=== PATIENT | male | born 1940 | race Caucasian/White ===

== ENCOUNTER → 2017-06-15 | Outpatient (CLI) | payer OTHER ==
[~2017-06-15] MED LIST: ASPIRIN EC81 M1 PO; CARVEDILOL25 MG PO; LISINOPRIL20 MG PO; POTASSIUM20 PO; SIMVASTATIN40 MG PO
== END ==
LOC: NUC 09:10
DX: I71.4 Abdominal aortic aneurysm, without rupture (principal); I73.9 Peripheral vascular disease, unspecified; I10 Essential (primary) hypertension; E78.5 Hyperlipidemia, unspecified; Z72.0 Tobacco use

== ENCOUNTER → 2018-05-23 | Outpatient (CLI) | payer OTHER ==
--- NOTE | ~2018-05-23 | 2DMMODE ---
[facility] [place] [address] 2 D/M-MODE ECHOCARDIOGRAM Name: BRIGIDOCJ R Room #: [facility]#: [id number] Admission: 05/23/18 Attend Phys: Jose Holly Discharge: Date of : 40 Date of Service: 05/23/18 1433 Report #: [id number] THIS REPORT FOR: //name// APPROVED REPORT Study performed: 05/23/2018 13:14:59 EXAM: Comprehensive 2D, Doppler, and color-flow Echocardiogram Patient Location: Out-Patient Status: routine BSA: 1.89 HR: 55 bpm BP: 154/70 mmHg Rhythm: NSR/PVCs Other Information Study Quality: Adequate Technically limited study due to body habitus. Indications Ischemic cardiomyopathy. ICD. 2D Dimensions IVSd: 11.25 (7-11mm) LVOT Diam: 22.00 (18-24mm) LVDd: 52.34 mm PWd: 10.29 (7-11mm) Ascending Ao: 36.27 (22-36mm) LVDs: 49.36 (25-40mm) Aortic Root: 42.07 mm Volumes Left Atrial Volume (Systole) Single Plane 4CH: 39.64 mL Single Plane 2CH: 52.48 mL LA ESV Index: 26.00 mL/m2 Aortic Valve AoV Peak Hunter.: 0.82 m/s AO Peak Gr.: 2.71 mmHg LVOT Max P.07 mmHg LVOT Max V: 0.72 m/s GHASSAN Vmax: 3.32 cm2 Mitral Valve E/A Ratio: 0.5 MV Decel. Time: 310.04 ms MV E Max Hunter.: 0.34 m/s [facility] [place] [place] [address] 2 D/M-MODE ECHOCARDIOGRAM Name: CJ FOFANA Room #: [facility]#: [id number] Admission: 05/23/18 Attend Phys: Jose Holly Discharge: Date of : 40 Date of Service: 05/23/18 1433 Report #: [id number] MV A Hunter.: 0.63 m/s MV PHT: 89.91 ms IVRT: 193.77 ms Pulmonary Valve PV Peak Hunter.: 0.70 m/s PV Peak Gr.: 1.95 mmHg Tricuspid Valve TR Peak Hunter.: 2.41 m/s RAP Estimate: 5.00 mmHg TR Peak Gr.: 23.14 mmHg PA Pressure: 28.00 mmHg Left Ventricle The left ventricle is normal size. There is normal left ventricular wall thickness. Left ventricular systolic function is severely decreased. LVEF is 20-25%. Mild diastolic dysfunction is present (impaired relaxation pattern). Right Ventricle Right ventricle is mildly dilated. The right ventricular systolic function is low normal. Device lead is present in the right ventricle. Atria Left atrium is mildly dilated. Right atrium is mildly dilated. Aortic Valve Aortic valve is calcified. Mild aortic regurgitation. There is no aortic valvular stenosis. Mitral Valve The mitral valve is normal in structure. Trace mitral regurgitation. Tricuspid Valve The tricuspid valve is normal in structure. Trace to miild tricuspid regurgitation. Estimated PAP is 25-30mmHg. Pulmonic Valve The pulmonary valve is normal in structure. Trace pulmonic regurgitation. 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 Ascending aorta is not well visualized. IVC is normal in size and collapses >50% with [facility] [address] [place] [address] 2 D/M-MODE ECHOCARDIOGRAM Name: CJ FOFANA Radha Room #: [facility]#: [id number] Admission: 05/23/18 Attend Phys: Jose Holly Discharge: Date of : 40 Date of Service: 05/23/18 1433 Report #: [id number] inspiration. Pericardium No pericardial effusion. <Conclusion> The left ventricle is normal size. LVEF is 20-25%. Right ventricle is mildly dilated. Device lead is present in the right ventricle. Left atrium is mildly dilated. Right atrium is mildly dilated. Aortic valve is calcified. Mild aortic regurgitation. The mitral valve is normal in structure. Trace mitral regurgitation. The tricuspid valve is normal in structure. Trace to miild tricuspid regurgitation. Estimated PAP is 25-30mmHg. The pulmonary valve is normal in structure. Trace pulmonic regurgitation. 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 Ascending aorta is not well visualized. No pericardial effusion. <ELECTRONICALLY SIGNED> By: Zaheer Mora MD 05/23/18 1433 1433 143 Zaheer Mora MD /INF
== END ==
LOC: CV 05-09 11:09
DX: I35.1 Nonrheumatic aortic (valve) insufficiency (principal); I35.8 Other nonrheumatic aortic valve disorders; I25.5 Ischemic cardiomyopathy

== ENCOUNTER → 2019-11-15 | Outpatient (CLI) | payer OTHER | LOC: SJCVC 12:36 | PROVIDERS: ATTEND Internal Medicine Cardiovascular Disease | DX: Z45.02 Encounter for adjustment and management of automatic implantable cardiac defibrillator (principal); I44.0 Atrioventricular block, first degree; I45.2 Bifascicular block; R94.31 Abnormal electrocardiogram [ECG] [EKG]; I48.0 Paroxysmal atrial fibrillation; I25.5 Ischemic cardiomyopathy; I71.4 Abdominal aortic aneurysm, without rupture; I25.10 Atherosclerotic heart disease of native coronary artery without angina pectoris; E11.9 Type 2 diabetes mellitus without complications; I10 Essential (primary) hypertension; E03.9 Hypothyroidism, unspecified; J44.9 Chronic obstructive pulmonary disease, unspecified; F17.210 Nicotine dependence, cigarettes, uncomplicated; Z79.82 Long term (current) use of aspirin; Z79.899 Other long term (current) drug therapy; Z86.718 Personal history of other venous thrombosis and embolism; Z95.810 Presence of automatic (implantable) cardiac defibrillator ==

== ENCOUNTER → 2020-05-20 | Outpatient (CLI) | payer OTHER | LOC: SJCVCIMAG 12:03 | PROVIDERS: ATTEND Internal Medicine Cardiovascular Disease | DX: I08.2 Rheumatic disorders of both aortic and tricuspid valves (principal); R94.31 Abnormal electrocardiogram [ECG] [EKG]; I45.2 Bifascicular block; I71.4 Abdominal aortic aneurysm, without rupture; I73.9 Peripheral vascular disease, unspecified; I25.5 Ischemic cardiomyopathy; I48.0 Paroxysmal atrial fibrillation; I25.10 Atherosclerotic heart disease of native coronary artery without angina pectoris; I10 Essential (primary) hypertension; E78.00 Pure hypercholesterolemia, unspecified; J43.9 Emphysema, unspecified; F17.210 Nicotine dependence, cigarettes, uncomplicated; Z95.810 Presence of automatic (implantable) cardiac defibrillator; Z79.82 Long term (current) use of aspirin; Z79.899 Other long term (current) drug therapy ==

== ENCOUNTER → 2020-11-20 | Outpatient (CLI) | payer OTHER | LOC: SJCVC 13:53 | PROVIDERS: ATTEND Internal Medicine Cardiovascular Disease | DX: I45.2 Bifascicular block (principal); R00.0 Tachycardia, unspecified; I49.1 Atrial premature depolarization; I44.1 Atrioventricular block, second degree; R94.31 Abnormal electrocardiogram [ECG] [EKG]; I48.0 Paroxysmal atrial fibrillation; I25.5 Ischemic cardiomyopathy; I25.10 Atherosclerotic heart disease of native coronary artery without angina pectoris; I71.4 Abdominal aortic aneurysm, without rupture; E11.9 Type 2 diabetes mellitus without complications; E03.9 Hypothyroidism, unspecified; I10 Essential (primary) hypertension; J43.9 Emphysema, unspecified; F17.210 Nicotine dependence, cigarettes, uncomplicated; Z95.810 Presence of automatic (implantable) cardiac defibrillator; Z79.82 Long term (current) use of aspirin; Z79.899 Other long term (current) drug therapy; Z86.718 Personal history of other venous thrombosis and embolism ==

== ENCOUNTER → 2021-05-20 | Outpatient (CLI) | payer OTHER | LOC: SJCVCIMAG 07:12 | PROVIDERS: ATTEND Internal Medicine Cardiovascular Disease | DX: R94.31 Abnormal electrocardiogram [ECG] [EKG] (principal); I45.2 Bifascicular block; I65.23 Occlusion and stenosis of bilateral carotid arteries; I71.4 Abdominal aortic aneurysm, without rupture; I48.0 Paroxysmal atrial fibrillation; I44.0 Atrioventricular block, first degree; I25.5 Ischemic cardiomyopathy; I25.10 Atherosclerotic heart disease of native coronary artery without angina pectoris; R09.89 Other specified symptoms and signs involving the circulatory and respiratory systems; E11.9 Type 2 diabetes mellitus without complications; I10 Essential (primary) hypertension; J44.9 Chronic obstructive pulmonary disease, unspecified; E03.9 Hypothyroidism, unspecified; I72.3 Aneurysm of iliac artery; Z95.810 Presence of automatic (implantable) cardiac defibrillator; F17.210 Nicotine dependence, cigarettes, uncomplicated; Z79.82 Long term (current) use of aspirin; Z79.899 Other long term (current) drug therapy ==